=== PATIENT | male | born 1995 | race Caucasian/White ===

== ENCOUNTER 2020-07-09 04:56 | Emergency (ER) | payer SELFPAY ==
[~2020-07-09] VITALS: Ht 180.3 cm; Wt 95.3 kg
[2020-07-09 04:56] VITALS: BP 172/86
--- NOTE | 2020-07-09 05:22 | NUR ---
COVID SWAB COLLECTED AND SENT TO THE LAB.
--- NOTE | 2020-07-09 05:44 | NUR ---
Patient discharged to home in stable condition. Written and verbal after care instructions given. Patient verbalizes understanding of instruction.
== END 2020-07-09 05:43 | disposition home or self-care (01) ==
LOC: ER 05:01
DX: B34.9 Viral infection, unspecified (principal); R05 Cough; R09.89 Other specified symptoms and signs involving the circulatory and respiratory systems; Z20.828 Contact with and (suspected) exposure to other viral communicable diseases
CPT/HCPCS: 99283; C9803; U0003

== ENCOUNTER 2021-08-16 19:26 | Emergency (ER) | payer SELFPAY ==
[~2021-08-16] VITALS: Ht 180.3 cm; Wt 95.3 kg
[2021-08-16] MEDS ORDERED: ONDANSETRON HCL/PF 4 MG/2 ML VIAL IVP ONE (21:00)
[2021-08-16] MEDS ORDERED: IV NS 0.9% 1,000 ML BAG IV ONE (21:00)
[2021-08-16] MEDS ORDERED: ONDANSETRON HCL/PF 4 MG/2 ML VIAL ONE (21:01)
[2021-08-16 21:59] LABS: BASOPHILS % (AUTO) 0.3 % (0.0-2.0); HEMATOCRIT 46 % (39-51); HEMOGLOBIN 15.8 g/dL (13.5-17.5); LYMPHOCYTES # (AUTO) 1.9 K/uL (0.8-4.8); LYMPHOCYTES % (AUTO) 17.8 % (20.0-44.0); MEAN CORPUSCULAR HGB CONC 34 g/dl (31.0-36.0); MEAN CORPUSCULAR VOLUME 86 fL (80-96); MONOCYTES # (AUTO) 0.6 K/uL (0.1-1.30); MONOCYTES % (AUTO) 5.1 % (2.0-12.0); NEUTROPHILS # (AUTO) 8.1 K/uL (1.8-8.9); NEUTROPHILS % (AUTO) 74.8 % (43.0-81.0); PLATELET COUNT (AUTO) 286 K/uL (150-450); RED BLOOD CELL COUNT(AUTO) 5.38 MIL/uL (4.5-6.0); WHITE BLOOD COUNT (AUTO) 10.8 K/uL (4.3-11.0)
[2021-08-16 22:08] LABS: CALCIUM, SERUM 9.1 mg/dL (8.5-10.1); CREATININE 1.2 mg/dL (0.6-1.3)
[2021-08-16 22:23] LABS: ALBUMIN 4.3 g/dL (3.4-5.0); BILIRUBIN,DIRECT 0.2 mg/dL (0.0-0.2); BILIRUBIN,TOTAL 0.6 mg/dL (0.2-1.0); TOTAL PROTEIN, SERUM 7.9 g/dL (6.4-8.2)
[2021-08-16] MEDS ORDERED: POLY17PO4 PO (22:34)
[2021-08-16] MEDS ORDERED: MAGNESIUM CITRATE 296 ML BOTTLE PO ONE (23:00)
[2021-08-16] MEDS ORDERED: MAGNESIUM CITRATE 296 ML BOTTLE ONE (23:13)
--- NOTE | 2021-08-16 23:25 | NUR ---
PT OK TO DISCHARGE HOMER PER [employer]. IV removed. Catheter intact and site benign. Pressure and 4x4 applied to site. No bleeding noted.Patient discharged to home in stable condition. Written and verbal after care instructions given. Patient verbalizes understanding of instruction.Patient is awake and alert to self, day, and place. PT ambulatory with a steady gait
[2021-08-16 23:30] VITALS: BP 123/72
--- NOTE | 2021-08-16 23:40 | NUR ---
Patient discharged to home in stable condition. Written and verbal after care instructions given. Patient verbalizes understanding of instruction.IV removed. Catheter intact and site benign. Pressure and 4x4 applied to site. No bleeding noted. Pt ambulatory with a steady gait
== END 2021-08-16 23:40 | disposition home or self-care (01) ==
LOC: ER 19:26
DX: K59.00 Constipation, unspecified (principal); E03.9 Hypothyroidism, unspecified
CPT/HCPCS: 36415; 74021; 80048; 80076; 83690; 85025; 96361; 96374; 99284; J2405; J7030